=== PATIENT | male | born 1945 | race Caucasian/White ===

== ENCOUNTER 2020-06-01 10:56 | Day surgery (SDC) | payer MEDICARE, BC ==
[2020-06-01] VITALS (11 sets, daily range): BP systolic 111–154; BP diastolic 59–77
[~2020-06-01] VITALS: Ht 190.5 cm; Wt 112.5 kg
[~2020-06-01 10:56] MED LIST: ACET-812 PO; AMIL5TAB8 PO; ASCO500C15 PO; ASPI81TA52 PO; ATEN-169 PO; BUPR150T8 PO; FENO135C PO; FLUT16SP2 BOTHNARES; HYDR-4353 PO; MULT-1179 PO; NITR0.4T SL; OMEG1CAP21 PO; OPTIFIBER PO; PANT40TA4 PO; POLY17PO10 PO; RAMI5CAP65 PO; ROSU40TA PO
[2020-06-01] MEDS ORDERED: diphenhydrAMINE 25mg capsule PO PRN (11:20)
[2020-06-01] MEDS ORDERED: normal saline 1,000 ML IV SCH (11:20)
[2020-06-01] MEDS ORDERED: CLOP75TA35 PO (11:41)
[2020-06-01] MEDS ORDERED: KETO15CR2 TOP (11:41)
[2020-06-01] MEDS ORDERED: DIPH25CA83 PO (11:41)
[2020-06-01] MEDS ORDERED: TERB250T4 PO (11:41)
[2020-06-01] MEDS ORDERED: ISOS60TA4 PO (11:41)
[2020-06-01] MEDS ORDERED: AMIT25TA10 PO (11:41)
[2020-06-01 12:29] LABS: BASOPHILS % (AUTO) 0.4 % (0-1); EOSINOPHILS # (AUTO) 0.1 X10'3 (0-0.9); EOSINOPHILS % (AUTO) 1.4 % (0-6); HEMATOCRIT 39.9 % (42.0-52.0); HEMOGLOBIN 13.6 g/dl (14.0-17.9); LYMPHOCYTES # (AUTO) 1.2 X10'3 (1.1-4.8); LYMPHOCYTES % (AUTO) 19.6 % (21-51); MEAN CORPUSCULAR HEMOGLOBIN 30.9 PG (27.0-31.0); MEAN CORPUSCULAR VOLUME 90.8 FL (78-98); MEAN PLATELET VOLUME 8.5 FL (7.4-10.4); MONOCYTES # (AUTO) 0.4 X10'3 (0-0.9); MONOCYTES % (AUTO) 7.1 % (2-12); NEUTROPHILS # (AUTO) 4.4 X10'3 (1.8-7.7); NEUTROPHILS % (AUTO) 71.5 % (42-75); PLATELET COUNT 270 X10'3 (140-440); RED BLOOD COUNT 4.39 X10'6 (4.70-6.10); RED CELL DISTRIBUTION WIDTH 12.8 % (11.5-14.5); WHITE BLOOD COUNT 6.2 X10'3 (4.5-11.0)
[2020-06-01 12:47] LABS: ALBUMIN 3.8 G/DL (3.4-5.0); ANION GAP 9 (8-16); BLOOD UREA NITROGEN 16 MG/DL (7-18); BUN/CREATININE RATIO 16.3 (5.4-32.0); CHLORIDE 105 MMOL/L (99-107); CREATININE 0.98 MG/DL (0.60-1.10); GLUCOSE 95 MG/DL (70-104); MAGNESIUM 1.7 MG/DL (1.5-2.4); POTASSIUM 3.7 MMOL/L (3.5-5.1); SODIUM 140 MMOL/L (135-145); TOTAL CARBON DIOXIDE 25.9 MMOL/L (24-32); eGFR 75 ML/MIN
[2020-06-01] MEDS ORDERED: midazolam 2 mg/2 ml injection ONE ×2 (12:54→13:38)
[2020-06-01] MEDS ORDERED: fentaNYL/PF 50MCG/1 ML 2ML syringe ONE (12:54)
[2020-06-01] MEDS ORDERED: LIDOcaine 1% (10mg/ml)w/preservative injection 20ml MDV ONE (12:55)
[2020-06-01] MEDS ORDERED: iohexol 350 MG/ML 50ML vial IV ONE ×2 (12:55→14:41)
[2020-06-01] MEDS ORDERED: heparin 1,000unit/ml 10ml vial 10 ML ONE (12:55)
[2020-06-01] MEDS ORDERED: iohexol 350MG/ML 100ml bottle IV ONE ×2 (12:55→13:58)
[2020-06-01] MEDS ORDERED: clopidogrel 300mg tablet ONE (14:47)
== END 2020-06-01 18:39 | disposition home or self-care (01) ==
LOC: SSTAY O 10:56
PROVIDERS: ATTEND Internal Medicine Cardiovascular Disease
DX: T82.858A Stenosis of other vascular prosthetic devices, implants and grafts, initial encounter (principal); I25.119 Atherosclerotic heart disease of native coronary artery with unspecified angina pectoris; I25.2 Old myocardial infarction; I25.82 Chronic total occlusion of coronary artery; Z95.5 Presence of coronary angioplasty implant and graft; Z79.899 Other long term (current) drug therapy; Y83.8 Other surgical procedures as the cause of abnormal reaction of the patient, or of later complication, without mention of misadventure at the time of the procedure; Y92.89 Other specified places as the place of occurrence of the external cause
CPT/HCPCS: 36415; 80048; 83735; 85025; 85610; 93005; 93459; 99152; 99153; C1725; C1751; C1760; C1769; C1874; C1894; C9600; C9604; J1644; J2001; J2250; J3010; J7030; Q0163; Q9967; A4620; A6258; C9601

== ENCOUNTER 2022-10-24 08:07 | Day surgery (SDC) | payer MEDICARE, BC ==
[~2022-10-24] VITALS: Ht 190.5 cm; Wt 115.0 kg
[2022-10-24] VITALS (10 sets, daily range): BP systolic 115–133; BP diastolic 48–73
[~2022-10-24 08:07] MED LIST changes: +AMIT25TA10 PO; -ASCO500C15 PO; +ASCO500C18 PO; +CLOP75TA34 PO; +DIPH25CA83 PO; +ISOS60TA71 PO; +KETO15CR2 TOP; -PANT40TA4 PO; +PANT40TA54 PO; +TERB250T89 PO
[2022-10-24] MEDS ORDERED: normal saline 1,000 ML IV SCH (08:35)
[2022-10-24] MEDS ORDERED: diphenhydrAMINE 25mg capsule PO PRN (08:35)
[2022-10-24 09:27] LABS: BASOPHILS % (AUTO) 0.6 % (0-1); EOSINOPHILS # (AUTO) 0.1 X10'3 (0-0.9); EOSINOPHILS % (AUTO) 1.9 % (0-6); HEMATOCRIT 39.2 % (42.0-52.0); HEMOGLOBIN 13.5 g/dl (14.0-17.9); LYMPHOCYTES # (AUTO) 1.4 X10'3 (1.1-4.8); LYMPHOCYTES % (AUTO) 23.1 % (21-51); MEAN CORPUSCULAR HEMOGLOBIN 31.2 PG (27.0-31.0); MEAN CORPUSCULAR HGB CONC 34.5 g/dL (33.0-36.5); MEAN CORPUSCULAR VOLUME 90.4 FL (78-98); MEAN PLATELET VOLUME 8.4 FL (7.4-10.4); MONOCYTES # (AUTO) 0.5 X10'3 (0-0.9); NEUTROPHILS % (AUTO) 65.4 % (42-75); PLATELET COUNT 262 X10'3 (140-440); RED BLOOD COUNT 4.33 X10'6 (4.70-6.10); WHITE BLOOD COUNT 6.1 X10'3 (4.5-11.0)
[2022-10-24] MEDS ORDERED: CALC-1208 (09:27)
[2022-10-24] MEDS ORDERED: FINA5TAB11 PO (09:27)
[2022-10-24] MEDS ORDERED: FLO0.4C PO (09:27)
[2022-10-24 09:35] LABS: ALBUMIN 3.5 G/DL (3.4-5.0); ANION GAP 9 (8-16); BLOOD UREA NITROGEN 17 MG/DL (7-18); BUN/CREATININE RATIO 17.5 (5.4-32.0); CALCIUM 9.3 MG/DL (8.5-10.1); CHLORIDE 104 MMOL/L (99-107); CREATININE 0.97 MG/DL (0.60-1.10); GLUCOSE 126 MG/DL (70-104); MAGNESIUM 1.7 MG/DL (1.5-2.4); POTASSIUM 3.6 MMOL/L (3.5-5.1); SODIUM 138 MMOL/L (135-145); TOTAL CARBON DIOXIDE 24.8 MMOL/L (24-32); eGFR 75 ML/MIN
[2022-10-24] MEDS ORDERED: LIDOcaine 1% (10mg/ml) 2ml vial ONE (13:49)
[2022-10-24] MEDS ORDERED: verapamil 2.5 mg/ml inj IV ONE (13:49)
[2022-10-24] MEDS ORDERED: nitroGLYCERIN-Tridil 50MG/D5W 250 ML IV ONE (13:49)
[2022-10-24] MEDS ORDERED: fentaNYL/PF 50MCG/1 ML 2ML syringe ONE (13:49)
[2022-10-24] MEDS ORDERED: midazolam 1 mg/ML 2ml injection ONE ×3 (13:49→14:57)
[2022-10-24] MEDS ORDERED: iohexol 350MG/ML 100ml bottle IV ONE ×2 (13:50→14:36)
[2022-10-24] MEDS ORDERED: heparin 1,000unit/ml 10ml vial 10 ML ONE (13:50)
[2022-10-24] MEDS ORDERED: clopidogrel 300mg tablet ONE (15:27)
[2022-10-24] MEDS ORDERED: normal saline 1000ml 1,000 ML IV SCH (16:10)
[2022-10-24] MEDS ORDERED: ondansetron/PF 4mg/2ml inj IV PRN (16:10)
[2022-10-24] MEDS ORDERED: HYDROcodone/acetaminophen 10/325mg tab PO PRN (16:10)
[2022-10-24] MEDS ORDERED: HYDROcodone/acetaminophen 5mg/325mg tablet PO PRN (16:10)
[2022-10-24] MEDS ORDERED: proCHLORperazine 10 MG/2 ml inj IV PRN (16:10)
== END 2022-10-24 19:25 | disposition home or self-care (01) ==
LOC: SSTAY O 08:07
PROVIDERS: ATTEND Internal Medicine Cardiovascular Disease
DX: I25.10 Atherosclerotic heart disease of native coronary artery without angina pectoris (principal); I25.810 Atherosclerosis of coronary artery bypass graft(s) without angina pectoris; I25.82 Chronic total occlusion of coronary artery; Z79.899 Other long term (current) drug therapy; I48.91 Unspecified atrial fibrillation; I25.2 Old myocardial infarction
CPT/HCPCS: 36415; 80048; 83735; 85025; 85610; 92978; 93005; 93459; 99152; 99153; C1725; C1751; C1753; C1769; C1874; C1894; C9600; J1644; J2250; J3010; J3490; J7030; Q0163; Q9967; A6258; A6402

== ENCOUNTER 2022-11-07 06:24 | Day surgery (SDC) | payer MEDICARE, BC ==
[~2022-11-07] VITALS: Ht 190.5 cm; Wt 116.0 kg
[~2022-11-07 06:24] MED LIST changes: +CALC-1208; +FINA5TAB11 PO; +FLO0.4C PO
[2022-11-07] MEDS ORDERED: diphenhydrAMINE 25mg capsule PO PRN (06:45)
[2022-11-07] MEDS ORDERED: normal saline 1,000 ML IV SCH (06:45)
[2022-11-07 07:06] VITALS: BP 134/72
[2022-11-07 07:13] LABS: BASOPHILS % (AUTO) 0.6 % (0-1); EOSINOPHILS # (AUTO) 0.2 X10'3 (0-0.9); EOSINOPHILS % (AUTO) 2.3 % (0-6); HEMATOCRIT 39.5 % (42.0-52.0); HEMOGLOBIN 13.7 g/dl (14.0-17.9); LYMPHOCYTES # (AUTO) 1.6 X10'3 (1.1-4.8); LYMPHOCYTES % (AUTO) 24.3 % (21-51); MEAN CORPUSCULAR HEMOGLOBIN 31.4 PG (27.0-31.0); MEAN CORPUSCULAR HGB CONC 34.7 g/dL (33.0-36.5); MEAN CORPUSCULAR VOLUME 90.3 FL (78-98); MEAN PLATELET VOLUME 8.3 FL (7.4-10.4); MONOCYTES # (AUTO) 0.6 X10'3 (0-0.9); MONOCYTES % (AUTO) 8.6 % (2-12); NEUTROPHILS # (AUTO) 4.3 X10'3 (1.8-7.7); NEUTROPHILS % (AUTO) 64.2 % (42-75); PLATELET COUNT 281 X10'3 (140-440); RED BLOOD COUNT 4.38 X10'6 (4.70-6.10); RED CELL DISTRIBUTION WIDTH 12.9 % (11.5-14.5); WHITE BLOOD COUNT 6.8 X10'3 (4.5-11.0)
[2022-11-07 07:53] LABS: ALBUMIN 3.9 G/DL (3.4-5.0); ANION GAP 9 (8-16); BLOOD UREA NITROGEN 16 MG/DL (7-18); BUN/CREATININE RATIO 14.7 (5.4-32.0); CALCIUM 8.9 MG/DL (8.5-10.1); CHLORIDE 105 MMOL/L (99-107); CREATININE 1.09 MG/DL (0.60-1.10); GLUCOSE 131 MG/DL (70-104); MAGNESIUM 1.9 MG/DL (1.5-2.4); POTASSIUM 3.6 MMOL/L (3.5-5.1); SODIUM 140 MMOL/L (135-145); TOTAL CARBON DIOXIDE 26.5 MMOL/L (24-32); eGFR 66 ML/MIN
[2022-11-07] MEDS ORDERED: midazolam 1 mg/ML 2ml injection ONE (08:20)
[2022-11-07] MEDS ORDERED: heparin 1,000unit/ml 10ml vial 0 ML ONE (08:20)
[2022-11-07] MEDS ORDERED: LIDOcaine 1% 30ml preserv. free vial ONE (08:20)
[2022-11-07] MEDS ORDERED: FENTANYL CITRATE/PF 50 MCG/1 ML VIAL ONE (08:20)
[2022-11-07] MEDS ORDERED: heparin 1,000 UNITS/NS 500ml 500 ML ONE (08:21)
[2022-11-07] MEDS ORDERED: iohexol 350MG/ML 100ml bottle IV ONE (08:21)
== END 2022-11-07 09:30 | disposition home or self-care (01) ==
LOC: SSTAY O 06:24
PROVIDERS: ATTEND Internal Medicine Cardiovascular Disease
DX: I20.0 Unstable angina (principal); I10 Essential (primary) hypertension; G47.30 Sleep apnea, unspecified; F10.10 Alcohol abuse, uncomplicated; Z88.8 Allergy status to other drugs, medicaments and biological substances; Z98.890 Other specified postprocedural states; Z98.52 Vasectomy status; Z82.49 Family history of ischemic heart disease and other diseases of the circulatory system; Z79.82 Long term (current) use of aspirin; Z79.899 Other long term (current) drug therapy
CPT/HCPCS: 36415; 80048; 83735; 85025; 85610; 93005; J1644; J2250; J3010; J3490; J7030; Q0163; Q9967

== ENCOUNTER 2022-11-10 09:25 | Day surgery (SDC) | payer MEDICARE, BC ==
[2022-11-10] VITALS (9 sets, daily range): BP systolic 113–128; BP diastolic 54–78
[~2022-11-10] VITALS: Ht 190.5 cm; Wt 115.1 kg
[~2022-11-10 09:25] MED LIST changes: -KETO15CR2 TOP; -TERB250T89 PO
[2022-11-10] MEDS ORDERED: HYDR50TA4 PO (09:57)
[2022-11-10] MEDS ORDERED: PANT-47 PO (09:58)
[2022-11-10] MEDS ORDERED: normal saline 1,000 ML IV SCH (10:25)
[2022-11-10] MEDS ORDERED: diphenhydrAMINE 25mg capsule PO PRN (10:25)
[2022-11-10] MEDS ORDERED: iohexol 350MG/ML 100ml bottle IV ONE (12:01)
[2022-11-10] MEDS ORDERED: heparin 1,000unit/ml 10ml vial 10 ML ONE (12:01)
[2022-11-10] MEDS ORDERED: fentaNYL/PF 50MCG/1 ML 2ML syringe ONE (12:01)
[2022-11-10] MEDS ORDERED: LIDOcaine 1% 30ml preserv. free vial ONE (12:01)
[2022-11-10] MEDS ORDERED: midazolam 1 mg/ML 2ml injection ONE (12:01)
[2022-11-10] MEDS ORDERED: heparin 1,000 UNITS/NS 500ml 500 ML ONE (12:02)
[2022-11-10] MEDS ORDERED: iohexol 350 MG/ML 50ML vial IV ONE (14:01)
[2022-11-10] MEDS ORDERED: clopidogrel 300mg tablet ONE (14:30)
[2022-11-10] MEDS ORDERED: proCHLORperazine 10 MG/2 ml inj IV PRN (15:20)
[2022-11-10] MEDS ORDERED: HYDROcodone/acetaminophen 10/325mg tab PO PRN (15:20)
[2022-11-10] MEDS ORDERED: acetaminophen 325mg tablet PO PRN (15:20)
[2022-11-10] MEDS ORDERED: normal saline 1000ml 1,000 ML IV SCH (15:20)
[2022-11-10] MEDS ORDERED: HYDROcodone/acetaminophen 5mg/325mg tablet PO PRN (15:20)
[2022-11-10] MEDS ORDERED: ondansetron/PF 4mg/2ml inj IV PRN (15:20)
== END 2022-11-10 18:00 | disposition home or self-care (01) ==
LOC: SSTAY O 09:25
PROVIDERS: ATTEND Internal Medicine Cardiovascular Disease
DX: I25.10 Atherosclerotic heart disease of native coronary artery without angina pectoris (principal); I25.2 Old myocardial infarction; I48.91 Unspecified atrial fibrillation; I10 Essential (primary) hypertension; E78.5 Hyperlipidemia, unspecified
CPT/HCPCS: 92978; 92979; 99152; 99153; C1725; C1751; C1753; C1760; C1769; C1874; C1894; C9600; J1644; J2250; J3010; J3490; J7030; Q0163; Q9967; 92933; A6258; C1761

== ENCOUNTER 2024-02-08 06:30 | Day surgery (SDC) | payer MEDICARE, BC ==
[2024-02-08] VITALS (15 sets, daily range): BP systolic 117–140; BP diastolic 58–69; PULSE 51–59; RESP 10–18; TEMP 97.8; O2SAT 92–98
[~2024-02-08] VITALS: Ht 190.5 cm; Wt 109.7 kg
[~2024-02-08 06:30] MED LIST changes: -CALC-1208; +CALC-1208 PO; +HYDR50TA4 PO; +PANT-47 PO
[2024-02-08] MEDS ORDERED: MOME45CR3 TOP (07:08)
[2024-02-08] MEDS ORDERED: KETO15CR2 TOP (07:08)
[2024-02-08] MEDS ORDERED: ISOS30TA84 PO (07:08)
[2024-02-08] MEDS ORDERED: CARB1TAB36 PO (07:08)
[2024-02-08 07:27] LABS: BASOPHILS % (AUTO) 0.4 % (0-1); EOSINOPHILS # (AUTO) 0.1 X10'3 (0-0.9); EOSINOPHILS % (AUTO) 2.2 % (0-6); HEMATOCRIT 39.4 % (42.0-52.0); HEMOGLOBIN 13.3 g/dl (14.0-17.9); LYMPHOCYTES # (AUTO) 1.2 X10'3 (1.1-4.8); LYMPHOCYTES % (AUTO) 18.4 % (21-51); MEAN CORPUSCULAR HEMOGLOBIN 30.6 PG (27.0-31.0); MEAN CORPUSCULAR HGB CONC 33.7 g/dL (33.0-36.5); MEAN CORPUSCULAR VOLUME 90.7 FL (78-98); MEAN PLATELET VOLUME 8.1 FL (7.4-10.4); MONOCYTES # (AUTO) 0.6 X10'3 (0-0.9); MONOCYTES % (AUTO) 8.7 % (2-12); NEUTROPHILS # (AUTO) 4.7 X10'3 (1.8-7.7); NEUTROPHILS % (AUTO) 70.3 % (42-75); PLATELET COUNT 270 X10'3 (140-440); RED BLOOD COUNT 4.35 X10'6 (4.70-6.10); RED CELL DISTRIBUTION WIDTH 13.9 % (11.5-14.5); WHITE BLOOD COUNT 6.7 X10'3 (4.5-11.0)
[2024-02-08] MEDS: diphenhydrAMINE 25mg capsule PO PRN (07:36)
[2024-02-08] MEDS: normal saline 1,000 ML IV SCH (07:37)
[2024-02-08] MEDS: sodium bicarbonate 1meq/ml syr 150 ML in dextrose 5%-water 1,000 ML IV SCH (07:37)
[2024-02-08 08:02] LABS: ALBUMIN 3.2 G/DL (3.4-5.0); ANION GAP 7 (8-16); BLOOD UREA NITROGEN 18 MG/DL (7-18); BUN/CREATININE RATIO 17.1 (10.0-20.0); CALCIUM 8.6 MG/DL (8.5-10.1); CHLORIDE 105 MMOL/L (99-107); CREATININE 1.05 MG/DL (0.60-1.10); GLUCOSE 123 MG/DL (70-104); MAGNESIUM 1.7 MG/DL (1.5-2.4); POTASSIUM 3.9 MMOL/L (3.5-5.1); SODIUM 139 MMOL/L (135-145); TOTAL CARBON DIOXIDE 27.1 MMOL/L (24-32); eCRCL 72 ML/MIN; eGFR 69 ML/MIN
[2024-02-08] MEDS ORDERED: LIDOcaine 1% 30ml preserv. free vial ONE (08:33)
[2024-02-08] MEDS ORDERED: midazolam 1 mg/ML 2ml injection ONE ×2 (08:33→10:12)
[2024-02-08] MEDS ORDERED: fentaNYL/PF 50MCG/1 ML 2ML syringe ONE (08:34)
[2024-02-08] MEDS ORDERED: iohexol 350 MG/ML 50ML vial IV ONE (08:34)
[2024-02-08] MEDS ORDERED: heparin 1,000unit/ml 10ml vial 10 ML ONE (08:34)
[2024-02-08] MEDS ORDERED: iohexol 350MG/ML 100ml bottle IV ONE ×3 (08:34→10:34)
[2024-02-08] MEDS ORDERED: clopidogrel 300mg tablet ONE (10:55)
[2024-02-08] MEDS ORDERED: HYDROcodone/acetaminophen 10/325mg tab PO PRN (11:20)
[2024-02-08] MEDS ORDERED: proCHLORperazine 10 MG/2 ml inj IV PRN (11:20)
[2024-02-08] MEDS ORDERED: ondansetron/PF 4mg/2ml inj IV PRN (11:20)
[2024-02-08] MEDS: HYDROcodone/acetaminophen 5mg/325mg tablet PO PRN (12:03)
== END 2024-02-08 14:33 | disposition home or self-care (01) ==
LOC: SSTAY O 06:30
PROVIDERS: ATTEND Internal Medicine Cardiovascular Disease
DX: I25.10 Atherosclerotic heart disease of native coronary artery without angina pectoris (principal); I44.7 Left bundle-branch block, unspecified
CPT/HCPCS: 36415; 80048; 83735; 85025; 85610; 92920; 93005; 93458; J1644; J2250; J3010; J3490; J7030; J7070; Q0163; Q9967; 93459; 99152; 99153; A6258; C1725; C1751; C1760; C1769; C1894

== ENCOUNTER 2025-02-27 06:43 | Day surgery (SDC) | payer MEDICARE, BC ==
[2025-02-27] VITALS (12 sets, daily range): BP systolic 98–123; BP diastolic 43–56; PULSE 41–51; RESP 11–16; TEMP 98.1; O2SAT 91–99
[~2025-02-27] VITALS: Ht 190.5 cm; Wt 102.6 kg
[~2025-02-27 06:43] MED LIST changes: +CARB1TAB36 PO; -FLO0.4C PO; +ISOS30TA84 PO; -ISOS60TA71 PO; +KETO15CR2 TOP; +MOME45CR3 TOP; -PANT40TA54 PO; -RAMI5CAP65 PO; +RAMI5CAP71 PO; +TAMS-55 PO
--- NOTE | 2025-02-27 07:12 | ELECTROCARDIOGRAPH REPORT ---
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 BEN Lai Measurements Intervals [place] Rate: 52 P: -13 MO: 195 QRS: 60 QRSD: 109 T: 62 QT: 461 QTc: 429 Interpretive Statements Sinus rhythm Incomplete left bundle branch block Probable left ventricular hypertrophy Electronically Signed On 02-27-2025 13:18:[address] BEN Lai Please click the below link to view image of tracing.
[2025-02-27] MEDS ORDERED: ATEN25TA2 PO (07:24)
[2025-02-27] MEDS ORDERED: ISOS120T13 PO (07:24)
[2025-02-27] MEDS ORDERED: CARB1TAB42 PO (07:29)
[2025-02-27] MEDS ORDERED: CARB1TAB44 PO ×2 (07:31)
[2025-02-27] MEDS ORDERED: ASPI-1265 PO (07:35)
[2025-02-27] MEDS ORDERED: GABA300C PO (07:35)
[2025-02-27] MEDS ORDERED: PRAM0.129 PO (07:37)
[2025-02-27] MEDS ORDERED: EVOL140P3 SQ (07:37)
[2025-02-27] MEDS ORDERED: FENO135C4 PO (07:39)
[2025-02-27] MEDS ORDERED: MELA3CAP2 PO (07:40)
[2025-02-27 08:11] LABS: ALBUMIN 3.4 G/DL (3.4-5.0); ANION GAP 5 (8-16); BLOOD UREA NITROGEN 16 MG/DL (7-18); BUN/CREATININE RATIO 22.5 (10.0-20.0); CALCIUM 8.9 MG/DL (8.5-10.1); CHLORIDE 108 MMOL/L (99-107); CREATININE 0.71 MG/DL (0.60-1.10); GLUCOSE 127 MG/DL (70-104); MAGNESIUM 1.8 MG/DL (1.5-2.4); POTASSIUM 3.6 MMOL/L (3.5-5.1); SODIUM 141 MMOL/L (135-145); TOTAL CARBON DIOXIDE 28.3 MMOL/L (24-32); eCRCL 104 ML/MIN; eGFR > 90 ML/MIN
[2025-02-27 08:14] LABS: BASOPHILS % (AUTO) 0.4 % (0-1); EOSINOPHILS # (AUTO) 0.1 X10'3 (0-0.9); EOSINOPHILS % (AUTO) 2.3 % (0-6); HEMATOCRIT 36.9 % (42.0-52.0); HEMOGLOBIN 12.8 g/dl (14.0-17.9); LYMPHOCYTES # (AUTO) 1.3 X10'3 (1.1-4.8); LYMPHOCYTES % (AUTO) 26.2 % (21-51); MEAN CORPUSCULAR HEMOGLOBIN 31.2 PG (27.0-31.0); MEAN CORPUSCULAR HGB CONC 34.7 g/dL (33.0-36.5); MEAN PLATELET VOLUME 8.5 FL (7.4-10.4); MONOCYTES # (AUTO) 0.5 X10'3 (0-0.9); MONOCYTES % (AUTO) 9.3 % (2-12); NEUTROPHILS # (AUTO) 3.1 X10'3 (1.8-7.7); NEUTROPHILS % (AUTO) 61.8 % (42-75); PLATELET COUNT 253 X10'3 (140-440); RED CELL DISTRIBUTION WIDTH 13.6 % (11.5-14.5)
[2025-02-27 08:15] LABS: INR 1.1 INR; PROTHROMBIN TIME 11.1 SECONDS (9.0-12.0)
[2025-02-27] MEDS: normal saline 1,000 ML IV SCH (08:42)
[2025-02-27] MEDS: diphenhydrAMINE 25mg capsule PO PRN (08:42)
[2025-02-27] MEDS: sodium bicarbonate 1meq/ml syr 150 ML in dextrose 5%-water 1,000 ML IV ONE (08:43)
[2025-02-27] MEDS ORDERED: iohexol 350 MG/ML 50ML vial IV ONE (08:44)
[2025-02-27] MEDS ORDERED: fentaNYL/PF 50MCG/1 ML 2ML syringe ONE (08:44)
[2025-02-27] MEDS ORDERED: iohexol 350MG/ML 100ml bottle IV ONE ×3 (08:44→10:34)
[2025-02-27] MEDS ORDERED: LIDOcaine 1% 30ml preserv. free vial ONE (08:44)
[2025-02-27] MEDS ORDERED: heparin 1,000unit/ml 10ml vial 10 ML ONE (08:44)
[2025-02-27] MEDS ORDERED: midazolam 1 mg/ML 2ml injection ONE ×3 (08:44→10:39)
[2025-02-27] MEDS ORDERED: atropine 0.1mg/ml 10ml syringe ONE (09:34)
[2025-02-27] MEDS ORDERED: clopidogrel 300mg tablet ONE (10:53)
[2025-02-27] MEDS ORDERED: proCHLORperazine 10 MG/2 ml inj IV PRN (11:25)
[2025-02-27] MEDS ORDERED: HYDROcodone/acetaminophen 5mg/325mg tablet PO PRN (11:25)
[2025-02-27] MEDS ORDERED: ondansetron/PF 4mg/2ml inj IV PRN (11:25)
--- NOTE | 2025-02-27 12:28 | CARDIOLOGY REPORT ---
DATE OF SERVICE: 02/27/2025 DICTATING PHYSICIAN: ALISTAIR SNIDER DO CARDIAC CATHETERIZATION REPORT REFERRING PHYSICIAN: Crow Hughes MD. CLINICAL HISTORY: This 79-year-old man is status post two-vessel CABG in 1987. He has had multiple cardiac catheterizations and stenting procedures since then, the most recent being early 02/2024, at which time he received multiple stents to the circumflex coronary artery. He has developed recurrent angina and an anginal equivalent deemed to be low-level exertional dyspnea. PROCEDURES PERFORMED: * Left heart catheterization. * Left ventriculography. * Selective coronary arteriography. * Selective opacification of a saphenous vein graft. * Selective opacification of a left internal mammary graft. * PTCA/balloon dilation (stented intermediate artery). * PTCA/stent placement (distal circumflex coronary artery), percutaneous arteriotomy closure (Perclose). * 90 minutes of conscious sedation and supervision DESCRIPTION OF PROCEDURE: The patient was sedated with fentanyl and Versed. He was then prepared and draped in the usual manner. The left inguinal area was infiltrated with 1% lidocaine. Using a micropuncture set and a Seldinger technique, a 7-[place] sheath was placed in the common femoral artery. 3000 units of heparin were given. Left heart catheterization and left ventriculography were performed using a 6-[place]ue[place] pigtail catheter. Coronary arteriography was performed using 6-[place]ue[place] #4 left and right Gita catheters. The stump of a saphenous vein graft to the circumflex system was opacified using the right Gita catheter. A left internal mammary graft to mid LAD was opacified using a 6-[place] CECIL catheter. PTCA/stent placement: The patient was given an additional 7,000 units of heparin. The left main coronary artery was engaged with a 7-[place]uean EB 4 guiding catheter. A Choice PT2 guidewire was passed into the intermediate artery across two areas of restenosis within a previously placed stent with the tip being placed distally. The lesions were then dilated with first a 4 x 20 mm balloon up to 20 atmospheres and subsequently with a 4.5 x 20 mm noncompliant balloon up to 30 atmospheres. After test injections demonstrated resolution of the hazy narrowed areas, which were treated, final arteriography of the intermediate was performed. A Whisper wire was passed down the main stem of the circumflex coronary artery. A lesion just proximal to a large posterolateral branch was then crossed and the tip was positioned distally within the PLB. The lesion was dilated with a 2.5 x 15 mm balloon and the residual stenosis was covered with a 2.5 x 15 mm Caro [place] drug-eluting stent inflated to 18 atmospheres. After test injections demonstrated stability of the treated area, final arteriography was performed. RESULTS: HEMODYNAMIC DATA: Left ventricular end diastolic pressure was 15 mmHg. There was no gradient across the aortic valve. LEFT VENTRICULOGRAM: The left ventriculogram was technically satisfactory. A subsegment of the inferior wall was akinetic. The anterolateral and anteroapical wall segments were moderately hypokinetic. Nevertheless, the ejection fraction appeared to be at least 55%. Stents were visible within the proximal intermediate artery and in the proximal circumflex there was also heavy calcification within the right coronary. CORONARY ARTERIOGRAPHY: The coronary arteriograms were technically satisfactory. The patient probably had a right dominant system. LEFT MAIN CORONARY ARTERY: The left main was a large unobstructed vessel trifurcating into left anterior descending intermediate and circumflex coronary arteries. LEFT ANTERIOR DESCENDING CORONARY ARTERY: The LAD was totally occluded proximally. INTERMEDIATE ARTERY: The intermediate was what appeared to be a medium-sized vessel with stents from the origin to approximately shelter along the length of the vessel. There were 2 hazy stenotic looking areas within the stent. CIRCUMFLEX CORONARY ARTERY: The circumflex was a large main stem vessel. There were two small diagonal branches taking their origin proximally and midway along the length of the main stem AV groove vessel. Proximal to the takeoff of a posterolateral branch, there was a long area of 75% to 80% stenosis. Collaterals from the distal circumflex were well-developed reaching over to the distal right coronary. RIGHT CORONARY ARTERY: The right coronary artery was totally occluded in its mid segment. An acute marginal branch provided some collateralization to septal perforators of the LAD. SELECTIVE OPACIFICATION OF BYPASS GRAFTS: A saphenous vein graft leading to the left coronary system was totally occluded at its origin. A left internal mammary graft to the mid LAD was patent and unobstructed both in the graft and in the [place] vessel beyond the distal anastomosis. PTCA/STENT PLACEMENT: Following aggressive balloon angioplasty of lesions within the intermediate artery, there was no significant residual stenosis and brisk runoff distally. Following balloon angioplasty and stenting of the distal main stem circumflex coronary, there was no residual stenosis and brisk runoff distally. 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 100% proximal LAD. B. 100% mid occlusion of the right coronary. * New 75% to 80% long distal stenosis in the main stem circumflex coronary artery. * Two areas of at least 75% stenosis within a previously proximally placed stent in the intermediate artery with a similar stenosis at the origin. * Successful balloon angioplasties of the multiple lesions in the intermediate artery. After inflation is as high as 30 atmospheres, there was no significant residual stenosis, no haziness, and good runoff through the vessel. * Successful balloon angioplasty/stent placement to the distal circumflex coronary artery. Following the intervention, there was no significant residual stenosis. RU flow in the intermediate and the circumflex coronary arteries was 3 before and after the intervention. * Left ventricular function overall was good, but there was subsegmental inferior wall akinesis and at least moderate hypokinesis of the anterolateral and anteroapical segments. The estimated LVEF post PVC was 55%. RECOMMENDATIONS: Ongoing medical therapy. ALISTAIR SNIDER DO TID: [id number] RECEIPT: [id number] ROEL/CORNELIO
[2025-02-27] MEDS: HYDROcodone/acetaminophen 10/325mg tab PO PRN (13:23)
== END 2025-02-27 14:40 | disposition home or self-care (01) ==
LOC: SSTAY O 06:43
PROVIDERS: ATTEND Internal Medicine Cardiovascular Disease
DX: R07.9 Chest pain, unspecified (principal); I25.118 Atherosclerotic heart disease of native coronary artery with other forms of angina pectoris; I25.2 Old myocardial infarction; I48.91 Unspecified atrial fibrillation; G20.A1 Parkinson's disease without dyskinesia, without mention of fluctuations; I44.7 Left bundle-branch block, unspecified; T82.858A Stenosis of other vascular prosthetic devices, implants and grafts, initial encounter; I49.3 Ventricular premature depolarization; Z95.5 Presence of coronary angioplasty implant and graft; Y83.8 Other surgical procedures as the cause of abnormal reaction of the patient, or of later complication, without mention of misadventure at the time of the procedure
CPT/HCPCS: 36415; 80048; 83735; 85025; 85610; 92920; 93005; 93459; 99152; 99153; A4314; A6258; C1725; C1751; C1760; C1769; C1874; C1894; C9600; J1644; J2003; J2250; J3010; J3490; J7030; J7070; Q0163; Q9967; Z7610; C9601; J0461